=== PATIENT | female | born 1935 | race Caucasian/White ===

== ENCOUNTER 2017-09-25 13:20 | Emergency (ER) | payer MEDICARE, BC ==
--- NOTE | 2017-09-25 13:53 | UC ---
Throat Pain/Nasal Suman HPI - HPI Summary HPI Summary: 81 YEAR OLD FEMALE PRESENTS WITH COMPLAINS OF SINUS CONGESTION AND HEADACHE. - History of Current Complaint Stated Complaint: COUGH,CONGESTION,HEADACHE Time Seen by Provider: 09/25/17 13:53 Hx Obtained From: Patient Onset/Duration: Sudden Onset Severity: Moderate Cough: Nonproductive Associated Signs & Symptoms: Positive: Sinus Discomfort, Nasal Discharge - Allergies/Home Medications Allergies/Adverse Reactions: Allergies Allergy/AdvReac Type Severity Reaction Status Date / Time Codeine Allergy STOPS Verified 09/25/17 14:32 PERISTALSIS ENVIRONMENTAL/SEASONAL Allergy POST NASAL Uncoded 09/25/17 14:32 HAYFEVER DRIP PMH/Surg Hx/FS Hx/Imm Hx Previously Healthy: Yes - Surgical History Surgical History: Yes Surgery Procedure, Year, and Place: [place] [facility] [place] [facility] [place] [facility] [place] maste[place] - Family History Known Family History: Positive: None, Unknown - Social History Alcohol Use: Daily Alcohol Amount: 1/DAY Substance Use Type: None Smoking Status (MU): Former Smoker Have You Smoked in the Last Year: No When Did the Patient Quit Smoking/Using Tobacco: 1977 - Immunization History Most Recent Influenza Vaccination: Not the 2014/2015 Season Review of Systems Constitutional: Negative Skin: Negative Eyes: Negative ENT: Sore Throat, Nasal Discharge, Sinus Congestion, Sinus Pain/Tenderness Respiratory: Negative Cardiovascular: Negative Gastrointestinal: Negative Genitourinary: Negative Motor: Negative Neurovascular: Negative Musculoskeletal: Negative Neurological: Negative Psychological: Negative All Other Systems Reviewed And Are Negative: Yes Physical Exam Triage Information Reviewed: Yes Vital Signs Reviewed: Yes Eye Exam: Normal ENT: Positive: Sinus tenderness Dental Exam: Normal Neck exam: Normal Neck: Positive: 1 Respiratory Exam: Normal Cardiovascular Exam: Normal Abdominal Exam: Normal Musculoskeletal Exam: Normal Neurological Exam: Normal Psychological Exam: Normal Skin Exam: Normal Throat Pain/Nasal Course/Dx - Differential Dx/Diagnosis Provider Diagnoses: SINUS CONGESTION. HEADACHE Discharge - Discharge Plan Condition: Stable Disposition: HOME Prescriptions: Amoxicillin PO (*) [Amoxicillin 500 MG CAP*] 500 mg PO TID #21 cap Fluticasone NASAL SPRAY 50MCG* [Flonase NASAL SPRAY 50MCG*] 2 spray BOTH NARES DAILY #1 btl Patient Education Materials: Sinusitis (ED), Allergic Rhinitis (ED) Referrals: Jazmin Snug MD [Primary Care Provider] -
[2017-09-25 14:32] VITALS: BP 144/90
== END 2017-09-25 14:41 | disposition home or self-care (01) ==
LOC: UCCORT 13:20
DX: R09.81 Nasal congestion (principal); R51 Headache; Z88.5 Allergy status to narcotic agent; Z90.710 Acquired absence of both cervix and uterus; Z87.891 Personal history of nicotine dependence
CPT/HCPCS: 99212; G0463

== ENCOUNTER 2018-02-22 09:59 | Emergency (ER) | payer MEDICARE, BC ==
--- OUTSIDE RECORDS SUMMARY | 2018-02-22 10:12 | XMS REPORT ---
:1935 External Reference #:[id number] Author Organization [facility] Address [address] [place] [address] Phone [phone] Care Team Providers Name Role Phone Cindy Sung M.D. Primary Care Physician Unavailable Payers Type Date Identification Numbers Payment Provider Subscriber Medicare Primary Policy Number: [id number] Medicare - NGS Sahra Maharaj PayID: [id number] [address] [place] [address] Commercial Policy Number: [id number] [place] [employer] Sahra Maharaj PayID: [id number] [address] [place] [address] Problems Date Description Provider Status Onset: Osteoarthritis Active Onset: Gastroesophageal reflux disease Active Onset: Sinusitis Active Onset: Backache Active Onset: Carcinoma of breast Active Onset: Basal cell carcinoma of nose Active Onset: 10/15/2016 Other secondary cataract, left eye Ryan Figueredo M.D. Active Onset: 10/15/2016 Bilateral primary open angle glaucoma Ryan Figueredo M.D. Active Onset: 08/08/2015 Presence of intraocular lens Ryan Figueredo M.D. Active Onset: 08/08/2015 Primary open-angle glaucoma, severe Ryan Figueredo M.D. Active stage Family History Date Family Member(s) Problem(s) Comments Father No Current Problems Mother No Current Problems Social History Type Date Description Comments Marital Status Legal Status: Occupation [employer] Work Status Retired ETOH Use Occasionally consumes alcohol Smoking Patient has never smoked Recreational Drug Use Never Used Drugs Daily Caffeine Does Not Consume Caffeine Allergies, Adverse Reactions, Alerts Date Description Reaction Status Severity Comments 01/31/2015 Codeine active GI upset Medications Medication Date Status Form Strength Qnty SIG Indications Ordering Provider Systane 02/09/ Active Solution 0.4-0.3% as needed Ryan Fleming 2018 Cinthia FigueredoDUmang Timolol Maleate 04/12/ Active Solution 0.5% 10unit Instill 1 Ryan Fleming 2016 s Drop In [place], Each Eye M.D. Two Times A Day Travatan Z 01/31/ Active Solution 0.004% 5units Instill 1 Ryan Fleming 2014 Drop In [place], Each Eye M.D. Every Night Arimidex / Active Tablets 1mg 1 tab by Unknown 0000 mouth every day Oxybutynin / Active Tablets ER 10mg Vorha, Chloride ER 0000 24HR Gal M.D. Tums / Active Chewtabs 500mg prn Unknown 0000 Timoptic-Xe 01/31/ Hx GFS 0.5% 5ml 1 drop Ryan Fleming 2015 - both eyes [place]o, 12/07/ every M.D. 2016 morning Multivitamins / Hx Capsules Unknown 0000 - 2015 Pantoprazole / Hx Tablets DR 40mg Pineda, Sodium 0000 - Cindy 06/26/ M.D. 2016 Azelastine HCL / Hx Solution 0.1% Pineda, (Nasal) 0000 - Cindy 06/26/ M.D. 2016 Vital Signs Date Vital Result Comment 11/20/2016 BP Systolic 133 mmHg BP Diastolic 79 mmHg Heart Rate 72 /min Respiratory Rate 16 /min Results Description No Information Procedures Date CPT Code Description Status 10/14/2017 72618 Visual Field Exam Extended Completed 10/14/2017 04744 Est Patient Intermediate Exam Completed 06/27/2017 72262 Est Patient Intermediate Exam Completed 06/21/2017 09798 Visual Field Exam Extended Completed 02/12/2017 06865 Est Patient Intermediate Exam Completed 11/20/2016 61544 Remove Secondary Cataract, Laser (Yag) Completed 10/15/2016 16456 Scanning Computerized Ophthalmic Diagnostic Imag Completed Posterior Seg On 10/15/2016 26271 Visual Field Exam Extended Completed 10/15/2016 21277 Est Patient Comprehensive Exam Completed 04/12/2016 62261 Est Patient Intermediate Exam Completed 04/12/2016 89756 Visual Field Exam Extended Completed 12/08/2015 73094 Scanning Computerized Ophthalmic Diagnostic Imag Completed Posterior Seg On 12/08/2015 88889 Est Patient Comprehensive Exam Completed 08/08/2015 50348 Visual Field Exam Extended Completed 08/08/2015 71696 Est Patient Intermediate Exam Completed 02/01/2015 60307 Fundus Photography With Interpretation And Report Completed 02/01/2015 13294 Visual Field Exam Extended Completed 02/01/2015 83646 Determination Of Refractive State Completed 02/01/2015 01192 Est Patient Comprehensive Exam Completed 08/02/2014 89386 Est Patient Intermediate Exam Completed 08/02/2014 05423 Gonioscopy Completed 08/02/2014 24356 Visual Field Exam Extended Completed 08/02/2014 47505 Scanning Computerized Ophthalmic Diagnostic Imag Completed Posterior Seg On 05/07/2014 601 [place] Completed 03/22/2014 94398 Trabeculoplasty By Laser Surgery Completed 03/15/2014 66953 Trabeculoplasty By Laser Surgery Completed 02/23/2014 27645 Visual Field Exam Extended Completed 02/23/2014 37395 Est Patient Comprehensive Exam Completed 08/24/2013 39945 Scanning Computerized Ophthalmic Diagnostic Imag Completed Posterior Seg On 08/24/2013 59947 Est Patient Intermediate Exam Completed 02/17/2013 57033 Est Patient Intermediate Exam Completed 02/17/2013 35068 Visual Field Exam Extended Completed 11/13/2012 605 Cleaning Cloth Completed 11/12/2012 13700 Extracapsular Cataract Extraction W/Intraocular Lens Completed 11/03/2012 89295 Ophthalmic Biometry Completed 10/30/2012 52877 Visual Field Exam Extended Completed 10/30/2012 66010 Est Patient Intermediate Exam Completed 05/23/2012 88032 Visual Field Exam Extended Completed 05/23/2012 47597 Est Patient Intermediate Exam Completed 02/21/2012 18856 Scanning Computerized Ophthalmic Diagnostic Imag Completed Posterior Seg On 02/21/2012 17234 Est Patient Intermediate Exam Completed 10/31/2011 47167 Extracapsular Cataract Extraction W/Intraocular Lens Completed 10/22/2011 70405 Ophthalmic Biometry Completed 10/19/2011 45056 Visual Field Exam Extended Completed 10/19/2011 55669 Gonioscopy Completed 10/19/2011 12187 Est Patient Intermediate Exam Completed 07/13/2011 37658 Visual Field Exam Extended Completed 07/13/2011 54255 Gonioscopy Completed 07/13/2011 47174 Est Patient Intermediate Exam Completed 04/05/2011 31249 Est Patient Intermediate Exam Completed 02/20/2011 86227 Trabeculoplasty By Laser Surgery Completed 02/12/2011 37456 Trabeculoplasty By Laser Surgery Completed 01/16/2011 97740 Scanning Computerized Ophthalmic Diagnostic Imag Completed Posterior Seg On 01/16/2011 21392 Visual Field Exam Extended Completed 01/16/2011 41921 Est Patient Intermediate Exam Completed 10/06/2010 23062 Fundus Photography With Interpretation And Report Completed 10/06/2010 80296 Visual Field Exam Extended Completed 10/06/2010 81956 Determination Of Refractive State Completed 10/06/2010 84321 Est Patient Comprehensive Exam Completed 04/05/2010 33641 Est Patient Intermediate Exam Completed 12/26/2009 89610 Est Patient Intermediate Exam Completed 12/26/2009 29212 Visual Field Exam Extended Completed 10/19/2009 11376 Scanning Laser W/Interp And Report Completed 10/19/2009 29164 Est Patient Intermediate Exam Completed 06/16/2009 71459 Visual Field Exam Extended Completed 06/16/2009 47678 Est Patient Intermediate Exam Completed 01/26/2009 68348 Trabeculoplasty By Laser Surgery Completed 01/20/2009 22576 Est Patient Intermediate Exam Completed 12/09/2008 62711 Visual Field Exam Extended Completed 11/10/2008 60165 Scanning Laser W/Interp And Report Completed 11/10/2008 11482 Est Patient Intermediate Exam Completed 07/01/2008 71813 Est Patient Intermediate Exam Completed 07/01/2008 97338 Visual Field Exam Extended Completed 07/01/2008 14828 Fundus Photography With Interpretation And Report Completed 03/19/2008 44644 Est Patient Intermediate Exam Completed 12/18/2007 10376 Visual Field Exam Extended Completed 06/13/2007 26827 Fundus Photography With Interpretation And Report Completed 05/30/2007 56306 Visual Field Exam Extended Completed 05/15/2007 70359 Scanning Laser W/Interp And Report Completed 05/15/2007 36816 Est Patient Intermediate Exam Completed 02/19/2007 53861 Visual Field Exam Extended Completed 01/09/2007 80203 Est Patient Intermediate Exam Completed Encounters Type Date Location Provider CPT E/M Dx Office Visit 11/03/2012 12:15p Ryan Figueredo MD, Ryan Figueredo, 42251 366.16 pc M.D. 366.16 Office Visit 04/15/2012 10:00a Ryan Figueredo MD, Atilio Victoria M.D. 69424 372.14 pc Office Visit 10/22/2011 9:15a Ryan Figueredo MD, Ryan Figueredo M.D. 85845 366.16 pc 366.16 Office Visit 03/11/2009 8:45a Ryan Figueredo MD, Ryan Figueredo, 15726 365.11 pc M.D. Office Visit 12/09/2008 1:45p Ryan Figueredo MD, Ryan Figueredo, 31350 365.11 pc M.D. Office Visit 12/18/2007 9:00a Ryan Figueredo MD, Ryan Figueredo, 46522 365.11 pc M.D. Office Visit 12/18/2007 8:15a Ryan Figueredo MD, Ryan Figueredo, 08294 365.11 pc M.D. Office Visit 09/11/2007 9:15a Ryan Figueredo MD, Ryan Figueredo, 69448 365.11 pc M.D. Office Visit 06/13/2007 9:15a Ryan Figueredo MD, Ryan Figueredo, 13376 365.11 pc M.D. Plan of Care 02/10/2018 - Ryan Figueredo M.D.[id number] Primary open-angle glaucoma, bilateral, severe stageComments:Smoking can increase the risk of developing or worsening any eye related disease, as well as affect your overall health. If you are a smoker, we strongly recommend that you quit.If you are not a smoker, we strongly recommend that you do not start. Your glaucoma is stable at this time.Your eye pressure is within an acceptable range, and your testing does not show any further deterioration at this time. Please continue your treatment.Follow up:4 Month Follow Up Visual Field, Central 10 IOP Check At your next visit, we are not planning to dilate your eyes. However, if you have any changes in your vision or new symptoms, there are certain situations that require us to dilate your eyes. If Dr. Figueredo requests any additional testing, that may require extra time. If you have any questions before your next appointment, please call our office [phone].[id number] Presence of intraocular lensComments:The artificial lens implants in both eyes appear to be stable at this time.
[2018-02-22 10:25] VITALS: BP 137/64
--- NOTE | 2018-02-22 11:32 | UC ---
HPI Wound/Suture Re-check - HPI Summary HPI Summary: Wound on left lower leg unsure what the original injury was began to heel then segura reopened and erythema is around wound---patient states there was some purulent drainage---none now - History Of Current Complaint Hx Obtained From: Patient Onset/Duration: Gradual Onset, Lasting Days - 5, Still Present, Worse Since - past 1-2 days Pain Intensity: 5 Pain Scale Used: 0-10 Numeric <Sonya Cazares - Last Filed: 02/22/18 11:35> <Sis Sung - Last Filed: 02/22/18 13:06> - History Of Current Complaint Chief Complaint: [employer] Stated Complaint: LEG SKIN COMPLAINT Time Seen by Provider: 02/22/18 11:22 - Allergies/Home Medications Allergies/Adverse Reactions: Allergies Allergy/AdvReac Type Severity Reaction Status Date / Time codeine Allergy stops Verified 02/22/18 10:28 peristalsis ENVIRONMENTAL/SEASONAL Allergy POST NASAL Uncoded 09/25/17 14:32 HAYFEVER DRIP PMH/Surg Hx/FS Hx/Imm Hx Previously Healthy: No Cancer History: Breast Cancer - Surgical History Surgical History: Yes Surgery Procedure, Year, and Place: 1982 [place], [facility] [place] CYST REMOV[place] FROM [place], [facility] [place] SEVERAL BILATERAL BREAST BIOPSIES, [facility] [place]. partial mastectomy - Family History Known Family History: Positive: None, Unknown - Social History Alcohol Use: Daily Alcohol Amount: 1/DAY Substance Use Type: None Smoking Status (MU): Former Smoker Have You Smoked in the Last Year: No When Did the Patient Quit Smoking/Using Tobacco: 1977 - Immunization History Most Recent Influenza Vaccination: Not the Season <Sonya Cazares - Last Filed: 02/22/18 11:35> Review of Systems Constitutional: Negative Skin: Other - 5 mm erythemic open area on left lower leg with 1 cm of surrounding erythema Eyes: Negative ENT: Negative Respiratory: Negative Cardiovascular: Negative Gastrointestinal: Negative Genitourinary: Negative Motor: Negative Neurovascular: Negative Musculoskeletal: Negative Neurological: Negative Psychological: Negative Is Patient Immunocompromised?: No All Other Systems Reviewed And Are Negative: Yes <Sonay Cazares - Last Filed: 02/22/18 11:35> Physical Exam Triage Information Reviewed: Yes Appearance: Well-Appearing, No Pain Distress, Well-Nourished Vital Signs: Initial Vital Signs Temp 98.8 F 02/22/18 10:13 Pulse 78 02/22/18 10:13 Resp 16 02/22/18 10:13 BP 137/64 02/22/18 10:13 Pulse Ox 96 02/22/18 10:13 Vital Signs Reviewed: Yes Eye Exam: Normal Eyes: Positive: Conjunctiva Clear ENT Exam: Normal ENT: Positive: Normal ENT inspection, Hearing grossly normal. Negative: Trismus , Muffled voice, Hoarse voice Dental Exam: Normal Neck exam: Normal Neck: Positive: Supple, Nontender, No Lymphadenopathy Respiratory Exam: Normal Respiratory: Positive: Chest non-tender, No respiratory distress, No accessory muscle use Cardiovascular Exam: Normal Cardiovascular: Positive: RRR, Pulses Normal, Brisk Capillary Refill Musculoskeletal Exam: Normal Musculoskeletal: Positive: Strength Intact, ROM Intact, No Edema Neurological Exam: Normal Neurological: Positive: Alert, Muscle Tone Normal Psychological Exam: Normal Skin Exam: Normal Skin: Positive: Other - as described ---no streaking <Sonya Cazares - Last Filed: 02/22/18 11:35> Vital Signs: Initial Vital Signs Temp 98.8 F 02/22/18 10:13 Pulse 78 02/22/18 10:13 Resp 16 02/22/18 10:13 BP 137/64 02/22/18 10:13 Pulse Ox 96 02/22/18 10:13 <Sis Sung - Last Filed: 02/22/18 13:06> Course/Dx - Course Course Of Treatment: mepilex dressing change q3 days, keflex for 5 days follow with pcp prn - Differential Dx - Laceration/Wound Provider Diagnoses: left lower leg wound infection <Sonya Cazares - Last Filed: 02/22/18 11:35> Discharge - Sign-Out/Discharge Documenting (check all that apply): Discharge/Admit/Transfer - Billing Disposition and Condition Condition: STABLE Disposition: HOME <Sonya Cazares - Last Filed: 02/22/18 11:35> - Billing Disposition and Condition Condition: STABLE Disposition: HOME <Sis Sung - Last Filed: 02/22/18 13:06> - Discharge Plan Condition: Stable Disposition: HOME Prescriptions: Cephalexin CAP* [Keflex CAP*] 500 mg PO TID #15 cap Patient Education Materials: Wound Infection (ED) Referrals: Jazmin Sung MD [Primary Care Provider] - If Needed Additional Instructions: Change dressing (Mepilex) every 3 days Attestation Statement User Type: Provider - I was available for consult. This patient was seen by the MALIK. The patient was not presented to, seen by, or examined by me. -Jessica <Sis Sung - Last Filed: 02/22/18 13:06>
== END 2018-02-22 11:40 | disposition home or self-care (01) ==
LOC: UCCORT 09:59
DX: S81.802D Unspecified open wound, left lower leg, subsequent encounter (principal); L08.9 Local infection of the skin and subcutaneous tissue, unspecified; Z88.5 Allergy status to narcotic agent; Z91.09 Other allergy status, other than to drugs and biological substances; Z87.891 Personal history of nicotine dependence; X58.XXXA Exposure to other specified factors, initial encounter; Y92.9 Unspecified place or not applicable
CPT/HCPCS: 99212; G0463

== ENCOUNTER 2019-04-10 09:20 | Emergency (ER) | payer MEDICARE, BC ==
--- OUTSIDE RECORDS SUMMARY | 2019-04-10 09:33 | XMS REPORT | Continuity of Care Document ---
:1935 External Reference #:[id number] Author Name Ryan Figueredo M.D. Address [address] [facility] [place] [address] Care Team Providers Name Role Phone Cindy Sung M.D. Primary Care Physician Unavailable Payers Date Identification Numbers Payment Provider Subscriber Policy Number: [id number] Medicare - NGS Sahra Maharaj PayID: [id number] [address] [place] [address] Policy Number: [id number] [place] Plan Sahra Maharaj PayID: [id number] [address] [place] [address] Problems Active Problems Provider Date Osteoarthritis Onset: Gastroesophageal reflux disease Onset: Sinusitis Onset: Backache Onset: Carcinoma of breast Onset: Basal cell carcinoma of nose Onset: Primary open-angle glaucoma, severe stage Ryan Figueredo M.D. Onset: 2014 Presence of intraocular lens Ryan Figueredo M.D. Onset: 08/08/2015 Bilateral primary open angle glaucoma Ryan Figueredo M.D. Onset: 10/15/2016 Other secondary cataract, left eye Ryan Figueredo M.D. Onset: 10/15/2016 Primary open angle glaucoma of right eye Ryan Figueredo M.D. Onset: 2018 Primary open angle glaucoma of left eye Ryan Figueredo M.D. 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 Solution Timolol Maleate Instill 1 Drop 10units Ryan Figueredo, 04/12/2016 0.5% In Each Eye Two M.D. Solution Times A Day Travatan Z Instill 1 Drop 5units Ryan Figueredo, 01/31/2015 0.004% In Each Eye M.D. Solution Every Night History Medications Vigamox one drop left eye 3ml Ryan Figueredo, 01/01/2019 - 0.5% Solution three times a day, M.D. 01/01/2019 start the day before surgery Prednisolone Acetate 1 drops left eye 10ml Ryan Figueredo, 01/01/2019 - 1% three times a day. M.D. 12/31/2018 Suspension taper as directed Systane as needed Ryan Figueredo, 02/09/2018 - 0.4-0.3% Solution M.D. 01/01/2019 Timoptic-Xe 1 drop both eyes 5ml Ryan Figueredo, 01/31/2015 - 0.5% GFS every morning M.D. 12/08/2015 Arimidex 1 tab by mouth Unknown - 1mg Tablets every day 12/31/2018 Multivitamins Unknown - Capsules 10/15/2015 Oxybutynin Chloride ER VorhaGal - 10mg M.D. 12/31/2018 Tablets ER 24HR Pantoprazole Sodium Cindy Sung - 40mg M.D. 06/26/2017 Tablets Azelastine HCL (Nasal) Cindy Sung - 0.1% M.D. 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 Vital Signs Date Vital Result Comment 11/20/2016 2:06pm BP Systolic 133 mmHg BP Diastolic 79 mmHg Heart Rate 72 /min Respiratory Rate 16 /min Procedures Date Code Description Status 01/01/2019 03854 Est Patient Intermediate Exam Completed 11/21/2018 15548 Visual Field Exam Extended Completed 11/21/2018 10099 Est Patient Intermediate Exam Completed 06/13/2018 29573 Visual Field Exam Extended Completed 06/13/2018 43475 Est Patient Intermediate Exam Completed 02/10/2018 27517 Est Patient Intermediate Exam Completed 10/14/2017 26795 Visual Field Exam Extended Completed 10/14/2017 70185 Est Patient Intermediate Exam Completed 06/27/2017 91416 Est Patient Intermediate Exam Completed 06/21/2017 16968 Visual Field Exam Extended Completed 02/12/2017 08781 Est Patient Intermediate Exam Completed 11/20/2016 78877 Remove Secondary Cataract, Laser (Yag) Completed 10/15/2016 59917 Scanning Computerized Ophthalmic Diagnostic Imag Posterior Completed Seg On 10/15/2016 90420 Visual Field Exam Extended Completed 10/15/2016 28036 Est Patient Comprehensive Exam Completed 04/12/2016 40902 Visual Field Exam Extended Completed 04/12/2016 90369 Est Patient Intermediate Exam Completed 12/08/2015 97174 Scanning Computerized Ophthalmic Diagnostic Imag Posterior Completed Seg On 12/08/2015 17398 Est Patient Comprehensive Exam Completed 08/08/2015 75322 Visual Field Exam Extended Completed 08/08/2015 25953 Est Patient Intermediate Exam Completed 02/01/2015 59991 Est Patient Comprehensive Exam Completed 02/01/2015 10877 Determination Of Refractive State Completed 02/01/2015 54109 Visual Field Exam Extended Completed 02/01/2015 33193 Fundus Photography With Interpretation And Report Completed 08/02/2014 40950 Scanning Computerized Ophthalmic Diagnostic Imag Posterior Completed Seg On 08/02/2014 40976 Visual Field Exam Extended Completed 08/02/2014 33945 Gonioscopy Completed 08/02/2014 62770 Est Patient Intermediate Exam Completed 05/07/2014 601 [place] Completed 03/22/2014 94632 Trabeculoplasty By Laser Surgery Completed 03/15/2014 74332 Trabeculoplasty By Laser Surgery Completed 02/23/2014 55861 Est Patient Comprehensive Exam Completed 02/23/2014 19897 Visual Field Exam Extended Completed 08/24/2013 50646 Scanning Computerized Ophthalmic Diagnostic Imag Posterior Completed Seg On 08/24/2013 69180 Est Patient Intermediate Exam Completed 02/17/2013 41472 Visual Field Exam Extended Completed 02/17/2013 40949 Est Patient Intermediate Exam Completed 11/13/2012 605 Cleaning Cloth Completed 11/12/2012 29220 Extracapsular Cataract Extraction W/Intraocular Lens Completed 11/03/2012 18432 Ophthalmic Biometry Completed 10/30/2012 44282 Visual Field Exam Extended Completed 10/30/2012 39285 Est Patient Intermediate Exam Completed 05/23/2012 87162 Est Patient Intermediate Exam Completed 05/23/2012 95470 Visual Field Exam Extended Completed 02/21/2012 58990 Scanning Computerized Ophthalmic Diagnostic Imag Posterior Completed Seg On 02/21/2012 75420 Est Patient Intermediate Exam Completed 10/31/2011 77719 Extracapsular Cataract Extraction W/Intraocular Lens Completed 10/22/2011 01951 Ophthalmic Biometry Completed 10/19/2011 69870 Visual Field Exam Extended Completed 10/19/2011 92792 Gonioscopy Completed 10/19/2011 63424 Est Patient Intermediate Exam Completed 07/13/2011 95333 Visual Field Exam Extended Completed 07/13/2011 08662 Gonioscopy Completed 07/13/2011 82417 Est Patient Intermediate Exam Completed 04/05/2011 46022 Est Patient Intermediate Exam Completed 02/20/2011 07828 Trabeculoplasty By Laser Surgery Completed 02/12/2011 42206 Trabeculoplasty By Laser Surgery Completed 01/16/2011 86714 Scanning Computerized Ophthalmic Diagnostic Imag Posterior Completed Seg On 01/16/2011 14312 Visual Field Exam Extended Completed 01/16/2011 06806 Est Patient Intermediate Exam Completed 10/06/2010 93033 Fundus Photography With Interpretation And Report Completed 10/06/2010 78969 Visual Field Exam Extended Completed 10/06/2010 81527 Determination Of Refractive State Completed 10/06/2010 03936 Est Patient Comprehensive Exam Completed 04/05/2010 06892 Est Patient Intermediate Exam Completed 12/26/2009 84398 Est Patient Intermediate Exam Completed 12/26/2009 10867 Visual Field Exam Extended Completed 10/19/2009 67837 Scanning Laser W/Interp And Report Completed 10/19/2009 06258 Est Patient Intermediate Exam Completed 06/16/2009 18024 Visual Field Exam Extended Completed 06/16/2009 85446 Est Patient Intermediate Exam Completed 01/26/2009 79003 Trabeculoplasty By Laser Surgery Completed 01/20/2009 58781 Est Patient Intermediate Exam Completed 12/09/2008 35848 Visual Field Exam Extended Completed 11/10/2008 54380 Scanning Laser W/Interp And Report Completed 11/10/2008 16045 Est Patient Intermediate Exam Completed 07/01/2008 98314 Est Patient Intermediate Exam Completed 07/01/2008 41599 Visual Field Exam Extended Completed 07/01/2008 52743 Fundus Photography With Interpretation And Report Completed 03/19/2008 40282 Est Patient Intermediate Exam Completed 12/18/2007 75315 Visual Field Exam Extended Completed 06/13/2007 19261 Fundus Photography With Interpretation And Report Completed 05/30/2007 12527 Visual Field Exam Extended Completed 05/15/2007 02996 Scanning Laser W/Interp And Report Completed 05/15/2007 35524 Est Patient Intermediate Exam Completed 02/19/2007 68912 Visual Field Exam Extended Completed 01/09/2007 68799 Est Patient Intermediate Exam Completed Encounters Type Date Location Provider Dx Diagnosis Office Visit 01/07/2019 Ryan Figueredo, Zenobia Hernandez, H40.1133 Primary 11:30a , doug OAdal open-angle glaucoma, bilateral, severe stage Office Visit 11/03/2012 Ryan Conteh, 366.16 Senile Nuclear 12:15p doug REDDY M.D. Sclerosis / Cataract 366.16 Senile Nuclear Sclerosis / Cataract Office Visit 04/15/2012 10:00a Ryan Vicente 372.14 Allergic MD Terell, doug Victoria M.D. Conjunctivitis Office Visit 10/22/2011 9:15a Ryan Fleming 366.16 Senile Nuclear MD Terell, doug Figueredo M.D. Sclerosis / Cataract 366.16 Senile Nuclear Sclerosis / Cataract Office Visit 03/11/2009 8:45a Ryan Conteh 365.11 Primary Open doug REDDY M.D. Angle Glaucoma Office Visit 12/09/2008 1:45p Ryan Conteh.11 Primary Open doug REDDY M.D. Angle Glaucoma Office Visit 12/18/2007 9:00a Ryan Conteh.11 Primary Open doug REDDY M.D. Angle Glaucoma Office Visit 12/18/2007 8:15a Ryan Conteh.11 Primary Open doug REDDY M.D. Angle Glaucoma Office Visit 09/11/2007 9:15a Ryan Conteh.11 Primary Open doug REDDY M.D. Angle Glaucoma Office Visit 06/13/2007 9:15a Ryan Conteh.11 Primary Open doug REDDY M.D. Angle Glaucoma Plan of Treatment 04/07/2019 - Ryan Figueredo M.D.H40.1133 Primary open-angle glaucoma, [...] continue your treatment.Follow up:4 Month Follow Up IOP Check At your next visit, we are not planning to dilate your eyes. However, if you have any changes in your vision or new symptoms, there are certain situations that require us to dilate your eyes. If Dr. Figueredo requests any additional testing, that may require extra time. If you have any questions before your next appointment, please call our office at . At your next visit, we are not planning to dilate your eyes. However, if you have any changes in your vision or new symptoms, there are certain situations that require us to dilate your eyes. If Dr. Figueredo requests any additional testing, that may require extra time. If you have any questions before your next appointment, please call our office at .Z96.1 Presence of intraocular lensComments:The artificial lens implants in both eyes appear to be stable at this time.
[2019-04-10 09:42] VITALS: BP 139/77
--- NOTE | 2019-04-10 10:03 | ED ---
Skin Complaint - HPI Summary HPI Summary: 83 yr old with the complaint of lesions on her nose, and right ear. She denies any acute complaint with her left leg today. She states she was asked questions and answered them, but she states that she has had chronic mild swelling of the left leg for a very long time since having a blood clot, and she has had veins behind her left knee that are more prominent that the right side since having the blood clot. Her leg is not hurting any more that it has for years. She does not want her leg evaluated further today as she feels it is no different than usual. She states that the reason she came here was that she has lesions on her face that she is concerned about. She has had skin cancers in the past removed from her left side of her face. She has lesions on her nose, right maxilla and right ear. They have been there for months. - History of Current Complaint Chief Complaint: UCLowerExtremity Time Seen by Provider: 04/10/19 09:45 Stated Complaint: LT KNEE SKIN CONCERN Pain Intensity: 0 - Allergy/Home Medications Allergies/Adverse Reactions: Allergies Allergy/AdvReac Type Severity Reaction Status Date / Time codeine Allergy stops Verified 12/19/18 12:45 peristalsis ENVIRONMENTAL/SEASONAL Allergy POST NASAL Uncoded 12/19/18 12:45 HAYFEVER DRIP PMH/Surg Hx/FS Hx/Imm Hx Endocrine/Hematology History: Denies: Hx Diabetes, Hx Thyroid Disease Cardiovascular History: Reports: Hx Peripheral Vascular Disease - PHLEBITIS LEFT LEG ABOUT 2 MONTHS AGO, Other Cardiovascular Problems/Disorders - DVT L LEG 1976 Denies: Hx Hypertension Respiratory History: Denies: Hx Asthma, Hx Chronic Obstructive Pulmonary Disease (COPD) GI History: Reports: Hx Gastroesophageal Reflux Disease - HISTORY OF, NOT TAKING ANY MEDICATION Denies: Hx Ulcer History: Reports: Hx Kidney Infection - A CHILD, Other Problems/ Disorders - HX OF BLADDER INFECTION Musculoskeletal History: Reports: Hx Arthritis - LOWER BACK AND NECK Sensory History: Reports: Hx Cataracts - DONE YEARS AGO, Hx Contacts or Glasses - GLASSES, Hx Glaucoma - BILATERAL Denies: Hx Hearing Aid Opthamlomology History: Reports: Hx Cataracts - DONE YEARS AGO, Hx Contacts or Glasses - GLASSES, Hx Glaucoma - BILATERAL - Cancer History Cancer Type, Location and Year: breast cancer- 6 years ago - Surgical History Surgery Procedure, Year, and Place: 1982 HYSTERECTOMY, [facility]. [place] [facility] [place] [facility] [place]. partial mastectomy Hx Anesthesia Reactions: No Infectious Disease History: No Infectious Disease History: Denies: Hx Hepatitis, Hx Human Immunodeficiency Virus (HIV), History Other Infectious Disease, Traveled Outside the in Last 30 Days - Family History Known Family History: Positive: None, Unknown - Social History Occupation: Retired Alcohol Use: Daily Alcohol Amount: 1/DAY Substance Use Type: Reports: None Smoking Status (MU): Former Smoker Have You Smoked in the Last Year: No Review of Systems Constitutional: Negative Positive: Other - left popliteal vein prominent Positive: Other - skin lesions All Other Systems Reviewed And Are Negative: Yes Physical Exam Triage Information Reviewed: Yes Vital Signs On Initial Exam: Initial Vitals Temp Pulse Resp BP Pulse Ox 97.7 F 74 18 139/77 98 04/10/19 09:35 04/10/19 09:35 04/10/19 09:35 04/10/19 09:35 04/10/19 09:35 Vital Signs Reviewed: Yes Appearance: Positive: Well-Appearing, No Pain Distress Skin: Positive: Warm, Skin Color Reflects Adequate Perfusion, Other - there are superficial skin lesions that may be skin cancers on the nose and right cheek and right ear. No redness or bleeding or cellulitis. Head/Face: Positive: Normal Head/Face Inspection Eyes: Positive: EOMI ENT: Positive: Pharynx normal Neck: Positive: Nontender Respiratory/Lung Sounds: Positive: Clear to Auscultation, Breath Sounds Present Cardiovascular: Positive: RRR. Negative: Murmur Abdomen Description: Positive: Nontender Musculoskeletal: Positive: Other - left leg slight larger than right. She has popliteal veins that are prominent left side. No knee effusion or redness. Neurological: Positive: Sensory/Motor Intact, Alert, Oriented to Person Place, Time, CN Intact II-III Psychiatric: Positive: Normal Diagnostics - Vital Signs Vital Signs Temp Pulse Resp BP Pulse Ox 04/10/19 09:35 97.7 F 74 18 139/77 98 - Laboratory Lab Statement: Any lab studies that have been ordered have been reviewed, and results considered in the medical decision making process. - Ultrasound left leg Ultrasound Interpretation Completed By: Radiologist - extensive dvt Course/Dx - Course Course Of Treatment: 83 yr old with extensive dvt left leg. She refuses ALS transfer to hospital ER. She verbalizes that she is going home and then to ER after taking care of things at home. She also has understanding that she needs to see dermatology or plastics for her skin lesions on the face. She is signing out AMA. - Diagnoses Provider Diagnoses: Left leg DVT, Skin lesion of face Discharge - Sign-Out/Discharge Documenting (check all that apply): Patient Departure All imaging exams completed and their final reports reviewed: Yes - Discharge Plan Condition: Good Disposition: AGAINST MEDICAL ADVICE Referrals: Jazmin Sung MD [Primary Care Provider] - - Billing Disposition and Condition Condition: GOOD Disposition: Against Medical Advice
== END 2019-04-10 11:36 | disposition left against medical advice (07) ==
LOC: UCCORT 09:20
DX: I82.402 Acute embolism and thrombosis of unspecified deep veins of left lower extremity (principal); I82.412 Acute embolism and thrombosis of left femoral vein; L98.9 Disorder of the skin and subcutaneous tissue, unspecified; Z85.828 Personal history of other malignant neoplasm of skin; Z86.718 Personal history of other venous thrombosis and embolism; Z85.3 Personal history of malignant neoplasm of breast; I73.9 Peripheral vascular disease, unspecified; Z87.891 Personal history of nicotine dependence
CPT/HCPCS: 99212; G0463